=== PATIENT | female | born 1940 | race Two or more races ===

== ENCOUNTER 2019-11-01 09:00 | Outpatient (CLI) | payer OTHER | END 2019-11-01 09:09 | disposition home or self-care (01) | LOC: RX STUDY 09:00 | DX: R13.19 Other dysphagia (principal) ==

== ENCOUNTER 2020-05-01 12:51 | Outpatient (CLI) | payer OTHER | END 2020-05-01 13:50 | disposition home or self-care (01) | LOC: NUCLEAR 12:51 | PROVIDERS: ATTEND Internal Medicine | DX: M81.0 Age-related osteoporosis without current pathological fracture (principal); Z13.820 Encounter for screening for osteoporosis ==

== ENCOUNTER → 2020-05-22 | Outpatient (CLI) | payer OTHER | END | disposition home or self-care (01) | LOC: SONOGRAMA 14:28 | PROVIDERS: ATTEND Internal Medicine | DX: R92.8 Other abnormal and inconclusive findings on diagnostic imaging of breast (principal); Z98.890 Other specified postprocedural states ==